=== PATIENT | male | born 1975 | race Caucasian/White ===

== ENCOUNTER 2017-11-07 09:20 | Emergency (ER) | payer OTHER ==
[~2017-11-07] VITALS: Ht 182.9 cm; Wt 77.3 kg
[2017-11-07 10:29] VITALS: BP 125/71
== END 2017-11-07 11:06 | disposition home or self-care (01) ==
LOC: EMS 09:25
DX: F10.10 Alcohol abuse, uncomplicated (principal); F17.210 Nicotine dependence, cigarettes, uncomplicated
CPT/HCPCS: 99283